=== PATIENT | female | born 1960 | race Caucasian/White ===

== ENCOUNTER 2020-10-29 10:07 | Emergency (ER) | payer BC ==
[~2020-10-29] VITALS: Ht 175.3 cm; Wt 59.0 kg
[2020-10-29 10:09] VITALS: BP 151/99
--- NOTE | 2020-10-29 10:09 | NUR ---
PT AMBULATED TO BED 9 WITH STEADY GAIT
--- NOTE | 2020-10-29 10:30 | NUR ---
60 YEAR OLD FEMALE COMPLAINS OF CHEST PAIN X 2 WEEKS. PT STATES THAT SHE HAD EPISODE OF SYNCOPE THIS MORNING, AND THAT SHE DID NOT FALL AND HIT HEAD. PT STATES SHE HAD EPISODES OF SYNCOPE SINCE KIDNEY BIOPSY PERFORMED LAST MONTH. PT AOX4, BREATHING EVEN AND UNLABORED, SKIN WARM AND DRY. BED IN LOWEST POSITION, LOCKED, BED RAIL UPX1. PMH - HTN, KIDNEY TRANSPLANT ALLERGIES - NKA
--- NOTE | 2020-10-29 10:53 | NUR ---
DR BRUNNER AT BEDSIDE EVALUATING PATIENT
[2020-10-29 11:26] LABS: HEMATOCRIT 28.9 % (36-48); RED BLOOD CELL COUNT(AUTO) 3.23 MIL/uL (4.20-5.40)
[2020-10-29 11:31] LABS: HEMOGLOBIN 9.9 g/dL (12.0-16.0); MEAN CORPUSCULAR HEMOGLOBIN 31 pg (27-31); MEAN CORPUSCULAR HGB CONC 34 g/dL (33-37); MEAN CORPUSCULAR VOLUME 89.6 fL (80-94); PLATELET COUNT (AUTO) 439 K/uL (140-450); RED CELL DISTRIBUTION WIDTH 14.8 % (11.6-13.7)
[2020-10-29 11:36] LABS: ALBUMIN 3.3 g/dL (3.4-5.0); ANION GAP 16.1 (8-16); CARBON DIOXIDE 30.7 mmol/L (21-32); TOTAL BILIRUBIN 0.5 mg/dL (0.0-1.0)
[2020-10-29 11:44] LABS: WHITE BLOOD COUNT (AUTO) 1.8 K/uL (4.8-10.8)
[2020-10-29 11:45] LABS: EOSINOPHILS % (MANUAL) 1 % (0-4); LYMPHOCYTES % (MANUAL) 25 % (20-46); MONOCYTES % (MANUAL) 23 % (5-12)
[2020-10-29 11:46] LABS: POTASSIUM 2.8 mmol/L (3.5-5.1)
[2020-10-29] MEDS ORDERED: NACL 0.9% 500 ML IV ONE (12:00)
[2020-10-29] MEDS ORDERED: fentaNYL citrate 0.05 MG/ML VIAL IVP ONE (12:00)
--- NOTE | 2020-10-29 12:40 | NUR ---
PT ALERT AND AWAKE, BREATHING EVEN AND UNLABORED, STATES NO PAIN AT THIS TIME
--- NOTE | 2020-10-29 13:55 | NUR ---
Patient discharged with v/s stable. Written and verbal after care instructions about nonspecific chest pain given and explained. Patient verbalized understanding. Ambulatory with steady gait. All questions addressed prior to discharge. Advised to follow up with PMD.
[2020-10-29 13:57] VITALS: BP 147/90
== END 2020-10-29 13:55 | disposition home or self-care (01) ==
LOC: MED 10:07
DX: R07.9 Chest pain, unspecified (principal); R06.02 Shortness of breath; R11.2 Nausea with vomiting, unspecified; Z98.890 Other specified postprocedural states
CPT/HCPCS: 36415; 71045; 80053; 83880; 84484; 85025; 93005; 96361; 96374; 99285; J3010; J7030

== ENCOUNTER 2022-07-11 11:05 | Inpatient (IN) | payer BC ==
[~2022-07-11] VITALS: Ht 175.3 cm; Wt 65.8 kg
[2022-07-11 11:09] VITALS: BP 122/84
--- NOTE | 2022-07-11 11:09 | NUR ---
[facility]EL[facility] TO ER BED 3
--- NOTE | 2022-07-11 11:20 | NUR ---
PT PLACED ON 15L N/C BUBBLER BY RT, SPO2 95%
--- NOTE | 2022-07-11 11:25 | NUR ---
RECEIVED CALL FROM RN AT 11:04 THAT PT COMPLAINING OF SOB WAS ARRIVING IN ER MOMENTARILTY. PT ARRIVED ON NONREBREATHER AT 15 L. SATURATION WAS 97%. O2 DECREASED TO 87% ON ROOM AIR WHILE PT AMBULATED TO HOSPITAL BED. IMMEDIATELY RETURNED TO 98% ONCE NONREBREATHER WAS REPLACED. PLACED PT ON NC BUBBLER AT 15LPM. O2 IS 96%, HR 112, AND RR 24. WILL CONTINUE TO MONITOR PATIENT.
[2022-07-11 11:52] LABS: BASOPHILS % (AUTO) 0.4 % (0.0-2.0); EOSINOPHILS % (AUTO) 0.4 % (0.0-4.0); HEMATOCRIT 42.7 % (36-48); HEMOGLOBIN 14.3 g/dL (12.0-16.0); MEAN CORPUSCULAR HEMOGLOBIN 34 pg (27-31); MEAN CORPUSCULAR HGB CONC 34 g/dL (33-37); MEAN CORPUSCULAR VOLUME 101.5 fL (80-94); MONOCYTES # (AUTO) 1.2 K/uL (0.8-1.0); MONOCYTES % (AUTO) 15.6 % (1.7-9.3); NEUTROPHILS # (AUTO) 5.6 K/uL (1.8-7.7); NEUTROPHILS % (AUTO) 70.6 % (42.2-75.2); PLATELET COUNT (AUTO) 325 K/uL (140-450); RED BLOOD CELL COUNT(AUTO) 4.21 MIL/uL (4.20-5.40); RED CELL DISTRIBUTION WIDTH 16.3 % (11.6-13.7); WHITE BLOOD COUNT (AUTO) 7.9 K/uL (4.8-10.8)
[2022-07-11 12:08] LABS: ALBUMIN 3.9 g/dL (3.4-5.0); ANION GAP 21.6 (8-16); ASPARTATE AMINOTRANSFERASE 66 U/L (15-37); CARBON DIOXIDE 24.2 mmol/L (21-32); CHLORIDE 92 mmol/L (98-107); CREATININE 1.5 mg/dL (0.6-1.3); GFR ARICAN-AMERICAN 45 mL/min (>90); GLUCOSE 152 mg/dL (74-106); SODIUM SERUM 135 mmol/L (136-145); TOTAL BILIRUBIN 2.3 mg/dL (0.0-1.0); UREA NITROGEN, BLOOD 11 mg/dL (7-18)
[2022-07-11 12:09] LABS: POTASSIUM 2.8 mmol/L (3.5-5.1)
[2022-07-11] MEDS ORDERED: POTASSIUM CHLORIDE 20% 40 MEQ/15 ML UDC PO ONE (12:10)
[2022-07-11] MEDS ORDERED: LACTATED RINGERS 1,000 ML IV ONE (12:25)
--- NOTE | 2022-07-11 12:30 | NUR ---
RESUMED CARE OF PT. AOX4. C/O SOB X1 WEEK WORSENING LAST 2 DAYS. ON 15L WITH BUBBLER. SATURATION 92-93%. SPEAKING IN FULL SENTENCES. IV NOTED TO RIGHT AC SL. SAFETY MAINTAINED.
[2022-07-11 12:37] LABS: APPEARANCE,URINE CLEAR (CLEAR); BILIRUBIN,URINE 2+ (NEGATIVE); BLOOD, URINE NEGATIVE (NEGATIVE); COLOR,URINE YELLOW (YELLOW); LEUKOCYTE ESTERASE ,URINE NEGATIVE (NEGATIVE); NITRITE, URINE POSITIVE (NEGATIVE); UGLUCOSE NEGATIVE (NEGATIVE)
[2022-07-11] MEDS ORDERED: cefTRIAXone 1,000 MG VIAL ONE (12:58)
--- NOTE | 2022-07-11 13:10 | NUR ---
PT PLACED ON BIPAP BY RT PER DR CHENEY ORDERS.
[2022-07-11 13:35] LABS: RBC,URINE 0-5 /HPF (0-5); WBC,URINE 0-5 /HPF (0-5)
[2022-07-11] MEDS ORDERED: KCL 20 MEQ/WATER INJ PREMIX 100 ML IV ONE (13:35)
[2022-07-11] MEDS ORDERED: ACETAMINOPHEN 325 MG TAB PO PRN (14:00)
[2022-07-11] MEDS ORDERED: ONDANSETRON 4 MG/2 ML VIAL IVP PRN (14:00)
[2022-07-11] MEDS ORDERED: ZOLPIDEM 10 MG TAB PO PRN (14:00)
[2022-07-11] MEDS ORDERED: MORPHINE SULFATE 2 MG/ML SYR IVP PRN (14:00)
[2022-07-11] MEDS ORDERED: MAG SULF 2000 MG/WATER PREMIX 50 ML IV PRN (14:00)
[2022-07-11] MEDS ORDERED: DOCUSATE SODIUM 100 MG GELCAP PO PRN (14:00)
[2022-07-11] MEDS ORDERED: LORazepam 2 MG/ML VIAL IVP PRN (14:00)
--- NOTE | 2022-07-11 14:49 | NUR ---
PT TOLERATING BIPAP SETTINGS WELL
[2022-07-11] MEDS: FUROSEMIDE 40 MG/4 ML VIAL IVP SCH (14:50)
[2022-07-11] MEDS ORDERED: DILT-135 PO (15:06)
[2022-07-11] MEDS ORDERED: PRED5TAB7 PO (15:06)
[2022-07-11] MEDS ORDERED: APIX5TAB PO (15:06)
[2022-07-11] MEDS ORDERED: ASPI-1822 PO (15:06)
--- NOTE | 2022-07-11 15:44 | NUR ---
REPORT GIVEN TO STRIP POLISHER FOR CONTINUATION OF CARE.
[2022-07-11 16:00] VITALS: BP 112/80
[2022-07-11 17:33] LABS: ANION GAP 15.3 (8-16); CARBON DIOXIDE 28.7 mmol/L (21-32); CREATININE 1.3 mg/dL (0.6-1.3)
[2022-07-11 18:00] VITALS: BP 143/98
--- NOTE | 2022-07-11 19:00 | NUR ---
RECEIVED REPORT FROM AM SHIFT. PATIENT WAS SEEN AND ASSESSED. PATIENT IS ON SPONTANEOUS TIME MODE ON BiPAP. PATIENT IS AWAKE AND ALERT AT THIS TIME. PATIENT IS ON BiPAP SETTINGS: IPAP 12, EPAP 6, BACK UP RR 14, FiO2 60%. SPO2 97%. NOTICED ADEQUATE BILATERAL CHEST RISE AND FALL. MACHINE PLUGGED IN RED OUTLET AND CONNECTED TO 50 PSI. BiPAP ALARMS SET APPROPRIATELY AND AUDIBLE TO ENVIRONMENT. AMBU BAG AT BEDSIDE. PATIENT IS IN NO RESPIRATORY DISTRESS AT THIS TIME. BILATERAL BREATH SOUNDS ON AUSCULTATION; UPPER LOBES: COARSE AND LOWER LOBES: COARSE. WILL CONTINUE TO MONITOR PATIENT.
--- NOTE | 2022-07-11 19:08 | NUR ---
PLACED PT ON BUBBLE HIGH FLOW NASAL CANNULAR 9L FOR PT TO EAT. PT TOLERATING WELL AT THIS TIME. SPO2 94%. RN AT BEDSIDE. WILL CONTINUE TO MONITOR PT.
--- NOTE | 2022-07-11 19:45 | NUR ---
CALLED TO BEDSIDE DUE TO PT DESATURATING AND MINIMAL INCREASE WOB. PLACED PT BACK ON BiPAP. PROTECTIVE GEL APPLIED. PT TOLERATING WELL AT THIS TIME. WILL CONTINUE TO MONITOR PT.
[2022-07-11 20:00] VITALS: BP 131/92
--- NOTE | 2022-07-11 20:00 | NUR ---
RECEIVED PATIENT AWAKE,ALERT AND ORIENTED.AFEBRILE.DENIES ANY PAIN AND DISCOMFORT.ON BIPAP SUPPORT WITH SETTINGS 12/6 RATE 16 FIO2 60%. O2 SAT AT92%.AFIB WITH RVR ON MONITOR HR 110.BP 106/76. SKIN INTACT .PULSES PRESENT AND PALPABLE WITH EDEMA ON BOTH LOWER EEXTREMITIES.PATIENT PATIENT VOIDS FREELY WITH ADEQUATE AMOUUNT OF URINE.WILL CONTINUE TO PROCEED WITH CARE PLAN.
[2022-07-11] MEDS ORDERED: PIPERACILLIN/TAZOBACTAM 3.375 GM VIAL IV ONE ×2 (20:51→23:26)
[2022-07-11] MEDS: PIPERACILLIN/TAZOBACTAM 3.375 GM in DEXTROSE 5% 50 ML IV SCH (21:15)
[2022-07-11] MEDS: APIXABAN 2.5 MG TAB PO SCH (21:17)
[2022-07-11 22:00] VITALS: BP 115/87
[2022-07-11 22:39] LABS: URINE TOTAL PROTEIN 65.1 mg/dL (0-12)
[2022-07-11 23:08] VITALS: BP 117/83
--- NOTE | 2022-07-11 23:14 | NUR ---
AT BEDSIDE, SPO2 100%. TITRATED FiO2 FROM 60% TO 45%. SPO2 100%. PT IS AWAKE AND ALERT. PT TOLERATING WELL AT THIS TIME. RN NOTIFIED. WILL CONTINUE TO MONITOR PT.
[2022-07-12] VITALS (15 sets, daily range): BP systolic 91–115; BP diastolic 60–78
[2022-07-12] MEDS: PIPERACILLIN/TAZOBACTAM 3.375 GM in DEXTROSE 5% 50 ML IV SCH ×5 (00:19→23:11)
--- NOTE | 2022-07-12 04:20 | NUR ---
AT BEDSIDE, SPO2 100%. TITRATED FiO2 FROM 45% TO 30%. SPO2 99%. PT TOLERATING WELL AT THIS TIME. RN NOTIFIED. WILL CONTINUE TO MONITOR PT.
[2022-07-12] MEDS ORDERED: PIPERACILLIN/TAZOBACTAM 3.375 GM VIAL IV ONE (05:24)
[2022-07-12 05:30] LABS: BASOPHILS % (AUTO) 0.7 % (0.0-2.0); EOSINOPHILS # (AUTO) 0.1 K/uL (0-0.4); EOSINOPHILS % (AUTO) 1.3 % (0.0-4.0); HEMATOCRIT 34.9 % (36-48); HEMOGLOBIN 11.5 g/dL (12.0-16.0); LYMPHOCYTES # (AUTO) 0.8 K/uL (2.5-16.5); LYMPHOCYTES % (AUTO) 15.6 % (20.5-51.1); MEAN CORPUSCULAR HEMOGLOBIN 34 pg (27-31); MEAN CORPUSCULAR HGB CONC 33 g/dL (33-37); MEAN CORPUSCULAR VOLUME 101.6 fL (80-94); MONOCYTES # (AUTO) 0.8 K/uL (0.8-1.0); MONOCYTES % (AUTO) 14.3 % (1.7-9.3); NEUTROPHILS # (AUTO) 3.6 K/uL (1.8-7.7); NEUTROPHILS % (AUTO) 68.1 % (42.2-75.2); PLATELET COUNT (AUTO) 204 K/uL (140-450); RED BLOOD CELL COUNT(AUTO) 3.44 MIL/uL (4.20-5.40); WHITE BLOOD COUNT (AUTO) 5.3 K/uL (4.8-10.8)
[2022-07-12 06:36] LABS: ALBUMIN 2.9 g/dL (3.4-5.0); ANION GAP 12.8 (8-16); CARBON DIOXIDE 28.8 mmol/L (21-32); CREATININE 1.2 mg/dL (0.6-1.3); POTASSIUM 3.6 mmol/L (3.5-5.1); TOTAL BILIRUBIN 1.4 mg/dL (0.0-1.0)
--- NOTE | 2022-07-12 07:00 | NUR ---
ENDORSED TO TOMI DAY SHIFT RN TO CONTINUE CARE.
--- NOTE | 2022-07-12 07:30 | NUR ---
REMOVED BIPAP SO PT COULD EAT. PT ON 15L NASAL CANNULA. SATURATION 100%. NO DISTRESS NOTED. WILL CONTINUE TO MONITOR.
--- NOTE | 2022-07-12 08:13 | NUR ---
BREAKFAST TOOK ABOUT 30% .
--- NOTE | 2022-07-12 08:45 | NUR ---
SEEN BY DR. SANTIZO NO NEW ORDER RECEIVED.
--- NOTE | 2022-07-12 09:05 | NUR ---
PATIENT HAS BEEN SCREENED AND CATEGORIZED MODERATE NUTRITION RISK. PATIENT WILL BE SEEN WITHIN 3-5 DAYS OF ADMISSION. FNS REFERRAL RECEIVED ON 07/12/22. REFERRAL DOES NOT MEET HIGH RISK CRITERIA PER HOSPITAL POLICY. PT WILL BE SEEN AND ASSESSED ACCORDING TO THE NUTRITION CARE POLICY. REVIEWED BY SALLY OLIVAS RD Addendum: 07/12/22 at [address] PATIENT HAS BEEN RE-SCREENED AND CATEGORIZED HIGH NUTRITION RISK. PATIENT WILL BE SEEN WITHIN 1-2 DAYS OF ADMISSION. REVIEWED BY SALLY OLIVAS RD
[2022-07-12] MEDS: FUROSEMIDE 40 MG/4 ML VIAL IVP SCH (09:54)
[2022-07-12] MEDS: ASPIRIN 81 MG TAB.CHEW PO SCH (09:55)
[2022-07-12] MEDS: predniSONE 5 MG TAB PO SCH (09:55)
[2022-07-12] MEDS: DILTIAZEM 120 MG CAPER PO SCH (09:55)
[2022-07-12] MEDS: APIXABAN 2.5 MG TAB PO SCH ×2 (09:55→20:43)
[2022-07-12] MEDS: METOPROLOL SUCCINATE 50 MG TABER PO SCH (09:56)
--- NOTE | 2022-07-12 10:30 | NUR ---
SEEN BY DR. BABCOCK AT BED SIDE , NO NEW ORDER RECEIVED.
[2022-07-12] MEDS ORDERED: ZOLPIDEM 5 MG TAB PO PRN (11:05)
--- NOTE | 2022-07-12 14:30 | NUR ---
TEXT TO DR BABCOCK HE SAID SHE CAN BE DOWN GRADE TO TELE IF OK WITH DR. CHAN.
--- NOTE | 2022-07-12 14:54 | NUR ---
TEXT DR. Dago CHAN SAID IT OK FOR HER TO BE DOWN GRADE TO TELE.
--- NOTE | 2022-07-12 14:56 | NUR ---
07/12/22 RD INITIAL ASSESSMENT COMPLETED PLEASE REFER TO NUTRITION ASSESSMENT UNDER CARE ACTIVITY FOR ESTIMATED NUTRITIONAL NEEDS. 1. CONTINUE CARDIAC DIET TOLERATED 2. MONITOR GI SYMPTOMS, PO INTAKE, AND NUTRITION RELATED LAB VALUES 3. RD TO FOLLOW-UP 3-5 DAYS, MODERATE RISK REVIEWED BY SALLY OLIVAS RD
--- NOTE | 2022-07-12 15:20 | NUR ---
PT TRANSFERRED TO ROOM 125B ON 15L NC WITH BUBBLER. A/OX4, ABLE TO MAKE NEEDS KNOWN. AMBULATORY TO RESTROOM. NO COMPLAINTS OF PAIN. 20G IV TO RAC SALINE LOCK. AFIB ON MONITOR. CALL LIGHT WITHIN REACH. BED LOCKED AND IN LOWEST POSITION. STANDARD PRECAUTION.
--- NOTE | 2022-07-12 15:20 | NUR ---
TRANSFER TO [facility] IN WHEELCHAIR BY ANN MARIE HODGES GENEVA SUPP. CONDITION STABLE AT THE TIMEM
--- NOTE | 2022-07-12 15:20 | NUR ---
TRANSFER OF PT TO ROOM 125B. BIPAP ON STAND BY. SETTING 12/,1.0. 30%. PT CURRENTLY ON 10L BUBBLE AND NO DISTRESS NOTED. SATURATION WAS 100%. WILL CONTINUE TO MONITOR.
--- NOTE | 2022-07-12 16:35 | NUR ---
DC PLANNING ASSESSMENT COMPLETE PLEASE REFER TO ASSESSMENT FOR DETAILS PT CURRENTLY HAS HLOC ORDER PENDING TO FOR LIVER BIOPSY, CM CURRENTLY WORKING ON. Addendum: 07/12/22 at 1729 by Sage JACSKON Amended: Links added.
--- NOTE | 2022-07-12 18:05 | NUR ---
FAMILY AT BEDSIDE
--- NOTE | 2022-07-12 19:12 | NUR ---
ENDORSED BEDSIDE REPORT TO ABELINO, INSURANCE VERIFICATION REP STEEL POST INSTALLER SUPERVISOR, FOR CONTINUITY OF CARE
[2022-07-12 22:13] LABS: CHLORIDE,URINE RANDOM 121 mmol/L (110-250); URINE SODIUM, RANDOM 115 mmol/l (40-220)
[2022-07-13 04:32] VITALS: BP 112/84
[2022-07-13] MEDS: PIPERACILLIN/TAZOBACTAM 3.375 GM in DEXTROSE 5% 50 ML IV SCH ×4 (05:09→23:41)
--- NOTE | 2022-07-13 05:14 | NUR ---
rn notes patient remains on 6L nasal cannula with humidifier at this time. no sob noted, VSS. received all medications with no side effects. Can safely go to the restroom independently.
[2022-07-13 06:09] LABS: BASOPHILS % (AUTO) 0.5 % (0.0-2.0); EOSINOPHILS # (AUTO) 0.1 K/uL (0-0.4); EOSINOPHILS % (AUTO) 2.1 % (0.0-4.0); HEMATOCRIT 37.8 % (36-48); HEMOGLOBIN 12.4 g/dL (12.0-16.0); LYMPHOCYTES # (AUTO) 0.9 K/uL (2.5-16.5); LYMPHOCYTES % (AUTO) 15.2 % (20.5-51.1); MEAN CORPUSCULAR HEMOGLOBIN 34 pg (27-31); MEAN CORPUSCULAR HGB CONC 33 g/dL (33-37); MEAN CORPUSCULAR VOLUME 102.5 fL (80-94); MONOCYTES # (AUTO) 0.7 K/uL (0.8-1.0); MONOCYTES % (AUTO) 11.7 % (1.7-9.3); NEUTROPHILS # (AUTO) 4.4 K/uL (1.8-7.7); NEUTROPHILS % (AUTO) 70.5 % (42.2-75.2); PLATELET COUNT (AUTO) 228 K/uL (140-450); RED BLOOD CELL COUNT(AUTO) 3.68 MIL/uL (4.20-5.40); RED CELL DISTRIBUTION WIDTH 16.2 % (11.6-13.7); WHITE BLOOD COUNT (AUTO) 6.2 K/uL (4.8-10.8)
[2022-07-13 06:19] LABS: ANION GAP 15.1 (8-16); CARBON DIOXIDE 28.9 mmol/L (21-32); CREATININE 1.1 mg/dL (0.6-1.3)
--- NOTE | 2022-07-13 07:16 | NUR ---
ASSUMED CONTINUITY OF CARE. INITIAL ASSESSMENT DONE. INITIAL ASSESSMENT DONE. SKIN BRUISE ON BUE, NOTED. IV ACCESS ON RIGHT AC GAUGE #20 LEAKING, D/C AND REMOVED. KEEP COMFORTABLE ON BED. CALL LIGHT WITHIN REACH.
[2022-07-13 08:00] VITALS: BP 107/73
--- NOTE | 2022-07-13 08:45 | NUR ---
IV INSERTED BY LYNN ABDULLAHI ON LEFT FOREARM GAUGE #22.TOLERATED WELL.
[2022-07-13] MEDS: METOPROLOL SUCCINATE 50 MG TABER PO SCH (08:53)
[2022-07-13] MEDS: DILTIAZEM 120 MG CAPER PO SCH (08:53)
[2022-07-13] MEDS: ASPIRIN 81 MG TAB.CHEW PO SCH (08:53)
[2022-07-13] MEDS: APIXABAN 2.5 MG TAB PO SCH ×2 (08:55→21:08)
[2022-07-13] MEDS: predniSONE 5 MG TAB PO SCH (08:59)
[2022-07-13] MEDS: FUROSEMIDE 40 MG/4 ML VIAL IVP SCH (09:26)
[2022-07-13] MEDS: POTASSIUM CHLORIDE 10 MEQ TABER PO PRN (10:53)
[2022-07-13 12:00] VITALS: BP 106/76
--- NOTE | 2022-07-13 13:10 | NUR ---
DR. MALIN CAME AND SPOKE TO PT. AT BEDSIDE.
[2022-07-13 16:00] VITALS: BP 102/70
--- NOTE | 2022-07-13 18:07 | NUR ---
PAGED JASON ANDERSON PER DR. ZHOU REQUEST REGARDING PT. D/C.
--- NOTE | 2022-07-13 18:08 | NUR ---
DR. CHAN PAGED BACK AND SAID THAT PT. CAN BE D/C AND FOLLOW UP PT. TRANSPLANT MD. DR. CHAN MESSAGE WAS FORWARDED TO DR. ZHOU. INFORMED CHARGE NURSE -OLIVIA -ELSI
--- NOTE | 2022-07-13 18:18 | NUR ---
PT. C/O CHEST PAIN. NO ACUTE DISTRESS NOTED. KEEP COMFORTABLE ON BED. WILL MEDICATE PER MD ORDER. INFORMED CHARGE NURSE OLIVIA ABDULLAHI.
--- NOTE | 2022-07-13 18:20 | NUR ---
PAGED DR. ZHOU AND INFORMED THAT PT. C/O CHEST PAIN AND WILL MEDICATE WITH MORPHINE ORDERED. DR. ZHOU HOLD D/C ORDER AND ORDERED STAT EKG. INFORMED CHARGE NURSE OLIVIA ABDULLAHI.
--- NOTE | 2022-07-13 18:46 | NUR ---
EKG PERFORMED AND ABNORM RESULTS WERE REPORTED TO RN RN WAS HANDED A COPY AND A COPY WAS PLACED IN PT CHART
--- NOTE | 2022-07-13 19:23 | NUR ---
REPORT GIVEN TO ZOË ABDULLAHI. IN STABLE CONDITION. ALSO ENDORSED ABOUT PT. HOLDING OF D/C DUE TO C/O CHEST PAIN.
--- NOTE | 2022-07-13 19:25 | NUR ---
RECEIVED PT FROM AM NURSE FOR CONTINUITY OF CARE. PT IS STABLE
[2022-07-13 20:00] VITALS: BP 100/64
--- NOTE | 2022-07-13 20:57 | NUR ---
REPORTED TO DR ZHOU PATIENT'S BP 77/47. MD BLAKE TO REPEAT BP
--- NOTE | 2022-07-13 21:30 | NUR ---
RECHECK BP 65/45. REPORTED TO MD. MD ORDERED 1 MG MORPHINE AND NS BOLUS OF 500 CC
[2022-07-13] MEDS ORDERED: MORPHINE SULFATE 2 MG/ML SYR IVP SCH (21:45)
[2022-07-13] MEDS ORDERED: NACL 0.9% 500 ML IV SCH (22:00)
--- NOTE | 2022-07-13 23:15 | NUR ---
BP IS NOW 100/64. NOTIFIED MD LINDA SAID ITS FINE AND NO NEED FOR MIDODRINE
--- NOTE | 2022-07-14 02:00 | NUR ---
MAGNESIUM SULFATE INFUSING FOR MAG 1.2
[2022-07-14 04:00] VITALS: BP 115/68
[2022-07-14] MEDS: PIPERACILLIN/TAZOBACTAM 3.375 GM in DEXTROSE 5% 50 ML IV SCH ×4 (05:46→23:47)
[2022-07-14 06:14] LABS: BASOPHILS % (AUTO) 0.5 % (0.0-2.0); EOSINOPHILS # (AUTO) 0.2 K/uL (0-0.4); EOSINOPHILS % (AUTO) 1.6 % (0.0-4.0); HEMATOCRIT 35.3 % (36-48); HEMOGLOBIN 11.7 g/dL (12.0-16.0); LYMPHOCYTES % (AUTO) 18.2 % (20.5-51.1); MEAN CORPUSCULAR HEMOGLOBIN 34 pg (27-31); MEAN CORPUSCULAR HGB CONC 33 g/dL (33-37); MEAN CORPUSCULAR VOLUME 103.3 fL (80-94); MONOCYTES # (AUTO) 1.4 K/uL (0.8-1.0); MONOCYTES % (AUTO) 13.3 % (1.7-9.3); NEUTROPHILS # (AUTO) 7.1 K/uL (1.8-7.7); NEUTROPHILS % (AUTO) 66.4 % (42.2-75.2); PLATELET COUNT (AUTO) 240 K/uL (140-450); RED BLOOD CELL COUNT(AUTO) 3.42 MIL/uL (4.20-5.40); WHITE BLOOD COUNT (AUTO) 10.7 K/uL (4.8-10.8)
[2022-07-14 06:36] LABS: ANION GAP 15.2 (8-16); CARBON DIOXIDE 25.3 mmol/L (21-32); CREATININE 1.5 mg/dL (0.6-1.3); POTASSIUM 3.5 mmol/L (3.5-5.1)
[2022-07-14 08:00] VITALS: BP 94/67
[2022-07-14] MEDS: DILTIAZEM 120 MG CAPER PO SCH (09:00)
[2022-07-14] MEDS: FUROSEMIDE 40 MG/4 ML VIAL IVP SCH (09:00)
--- NOTE | 2022-07-14 09:05 | NUR ---
RECEIVED ON A VAPOTHERM HIGH FLOW NASAL CANNULA WITH COMPRESSOR ON PLUGGED INTO RED OUTLET C/O "EXCESSIVE FLOW AND IT'S DRYING ME OUT" PATIENT WITH NO C/O SOB AT THIS TIME GOOD CHEST RISE BREATH SOUNDS DECREASED BILATERAL GOOD CHEST RISE DECREASED FLOW TO 30 LPM TITRATED FIO2 TO 80% MECHANICAL ADJUSTER TO MONITOR AND TITRATED FIO2 TOLERATED
--- NOTE | 2022-07-14 09:20 | NUR ---
SATURATION 100% ON FIO2 OF 80% VIA VAPOTHERM HIGH FLOW NASAL CANNULA TITRATED FIO2 TO 60% PENSIONHOLDER INFORMATION CLERK TO MONITOR AND TITRATE FIO2 TOLERATED
--- NOTE | 2022-07-14 09:43 | NUR ---
TOLERATING VAPOTHERM HIGH FLOW NASAL CANNULA SATURATION 97% ON FIO2 OF 60% TITRATED FIO2 TO 40% C/O OF SOB AT THIS TIME
[2022-07-14] MEDS: ALBUTEROL 0.083% 2.5 MG/3 ML NEBU INH PRN ×2 (09:52→19:50)
--- NOTE | 2022-07-14 09:52 | NUR ---
SATURATION 96% ON FIO2 OF 40% VIA VAPOTHERM HIGH FLOW NASAL CANNULA POST HHN THERAPY REMOVED FROM VAPOTHERM PLACED ON HUMIDIFIED SUPPLEMENTAL OXYGEN AT 5 LPM VIA NC
--- NOTE | 2022-07-14 10:08 | NUR ---
SATURATION 94% ON 5 LPM VIA NC NO DISTRESS NOTED PA NOTIFIED Addendum: 07/14/22 at 1714 [address] RT PA=SHANNON
[2022-07-14] MEDS: APIXABAN 2.5 MG TAB PO SCH ×2 (10:40→20:41)
[2022-07-14] MEDS: ASPIRIN 81 MG TAB.CHEW PO SCH (10:40)
[2022-07-14] MEDS: predniSONE 5 MG TAB PO SCH (10:46)
[2022-07-14] MEDS: METOPROLOL SUCCINATE 50 MG TABER PO SCH (10:49)
[2022-07-14 12:00] VITALS: BP 122/90
--- NOTE | 2022-07-14 15:09 | NUR ---
LOC AWAKE AND ALERT VERBALLY RESPONSIVE; SPOUSE AT BEDSIDE; NO DISTRESS NOTED GOOD CHEST RISE; RALES BILATERAL; GOOD CHEST RISE; SATURATION 97% ON SUPPLEMENTAL OXYGEN AT 5 LPM VIA NC; TITRATED FIO2 TO 4 LPM; NAS/RN NOTIFIED
[2022-07-14 16:00] VITALS: BP 96/77
--- NOTE | 2022-07-14 19:16 | NUR ---
ENDORSE PATIENT IN STABLE CONDITION TO PM SHIFT NURSE WHILE PIV L. FOREARM 22G SALINE LOCK. PATIENT CURRENT ON 4 LITER VIA NC. MIGHT DISCHARGE HOME TOMORROW.
--- NOTE | 2022-07-14 19:25 | NUR ---
RECEIVED PT FROM AM NURSE FOR CONTINUITY OF CARE. PT IS STABLE
[2022-07-14 20:00] VITALS: BP 101/62
--- NOTE | 2022-07-14 20:39 | NUR ---
1950 patient given hhntx. patient wants to try taking o2 off. sats on room air 98%. left o2 on standby for pt. took hiflow machine and bipap machine out of pt room. pt will call if she feels sob
[2022-07-15] VITALS: BP 104/59
--- NOTE | 2022-07-15 01:00 | NUR ---
PATIENT ASLEEP, NO SOB NOTED
[2022-07-15 04:00] VITALS: BP 99/60
[2022-07-15] MEDS: PIPERACILLIN/TAZOBACTAM 3.375 GM in DEXTROSE 5% 50 ML IV SCH ×3 (05:54→18:05)
[2022-07-15 06:04] LABS: BASOPHILS % (AUTO) 0.6 % (0.0-2.0); EOSINOPHILS # (AUTO) 0.1 K/uL (0-0.4); EOSINOPHILS % (AUTO) 1.1 % (0.0-4.0); HEMATOCRIT 34.7 % (36-48); HEMOGLOBIN 11.5 g/dL (12.0-16.0); LYMPHOCYTES # (AUTO) 1.5 K/uL (2.5-16.5); LYMPHOCYTES % (AUTO) 22.7 % (20.5-51.1); MEAN CORPUSCULAR HEMOGLOBIN 34 pg (27-31); MEAN CORPUSCULAR HGB CONC 33 g/dL (33-37); MEAN CORPUSCULAR VOLUME 102.3 fL (80-94); MONOCYTES # (AUTO) 0.9 K/uL (0.8-1.0); MONOCYTES % (AUTO) 13.4 % (1.7-9.3); NEUTROPHILS # (AUTO) 4.2 K/uL (1.8-7.7); NEUTROPHILS % (AUTO) 62.2 % (42.2-75.2); PLATELET COUNT (AUTO) 218 K/uL (140-450); RED BLOOD CELL COUNT(AUTO) 3.39 MIL/uL (4.20-5.40); WHITE BLOOD COUNT (AUTO) 6.8 K/uL (4.8-10.8)
[2022-07-15 06:32] LABS: ANION GAP 13.7 (8-16); CARBON DIOXIDE 27.4 mmol/L (21-32); CREATININE 1.4 mg/dL (0.6-1.3); POTASSIUM 3.1 mmol/L (3.5-5.1)
--- NOTE | 2022-07-15 07:15 | NUR ---
ENDORSED PATIENT TO AM NURSE. PT IS STABLE
--- NOTE | 2022-07-15 07:20 | NUR ---
RECEIVED REPORT FROM NIGHT NURSE ZOË FOR CONTINUITY OF CARE. IV SITE INTACT. ON CONT. o2 THERAPY @ 2lMIN VIA N/C. NOT IN ANY DISTRESS NOTED. CALL LIGHT KEPT WITHIN REACH. WILL CONTINUE TO MONITOR.
[2022-07-15 08:00] VITALS: BP 126/87
[2022-07-15] MEDS: FUROSEMIDE 40 MG/4 ML VIAL IVP SCH (09:00)
[2022-07-15] MEDS: DILTIAZEM 120 MG CAPER PO SCH (09:00)
--- NOTE | 2022-07-15 09:33 | NUR ---
RECEIVED CALLED FROM [facility] SPOKE TO ILAN. REQUESTING FOR RECENT LABS AND TO BE FAX TO [phone].
--- NOTE | 2022-07-15 10:00 | NUR ---
STABLE NO DISTRESS NOTED GOOD CHEST RISE BREATH SOUNDS DIFFUSED RALES BILATERAL SUPPLEMENTAL OXYGEN AT 3 LPM VIA NC SATURATION 100% TITRATED FIO2 TO 2 LPM GREEN PRIZE PACKER TO NOTIFY RN
[2022-07-15] MEDS: POTASSIUM CHLORIDE 10 MEQ TABER PO PRN (10:14)
--- NOTE | 2022-07-15 10:14 | NUR ---
K DUR GIVEN FOR POTASSIUM 3.1. TOLERATING WELL.
[2022-07-15] MEDS: APIXABAN 2.5 MG TAB PO SCH ×2 (10:18→20:32)
--- NOTE | 2022-07-15 10:18 | NUR ---
SCHEDULED MEDICATIONS GIVEN. TOLERATING WELL. DILTIAZEM HOLD PER PARAMETER.
[2022-07-15] MEDS: ASPIRIN 81 MG TAB.CHEW PO SCH (10:19)
[2022-07-15] MEDS: METOPROLOL SUCCINATE 50 MG TABER PO SCH (10:29)
[2022-07-15] MEDS: predniSONE 5 MG TAB PO SCH (10:29)
[2022-07-15 12:00] VITALS: BP 119/84
--- NOTE | 2022-07-15 12:28 | NUR ---
HOME OXYGEN EVALUATION; PLACED ON ROOM AIR AT THIS TIME
--- NOTE | 2022-07-15 12:55 | NUR ---
MADE CLARIFICATION TO EVENT SALES REPRESENTATIVE JEREMY. PT WILL BE DISCHARGE TO HOME.
--- NOTE | 2022-07-15 13:38 | NUR ---
LOC AWAKE AND ALERT SITTING ON SIDE OF BED SATURATION 87%-88% ON ROOM AIR PLACED PATIENT BACK ON SUPPLEMENTAL OXYGEN AT 2 LPM VIA NC PATIENT CANDIDATE FOR HOME OXYGEN
--- NOTE | 2022-07-15 14:29 | NUR ---
PT REQUESTING TO BE DISCHARGE. NO C/O SOB OR ANY DISCOMFORT. V/S FOLLOWS: T- 96.9 P - 136 R - 18 BP 118/93 P 0/10 O2 SAT 98% RA. DR. SANTIZO NOTIFIED AGREED, AND GIVE DISCHARGE ORDER.
--- NOTE | 2022-07-15 14:48 | NUR ---
SEEN BY DR. MALIN.
[2022-07-15] MEDS ORDERED: POTASSIUM CHLORIDE 10 MEQ TABER PO SCH (14:52)
[2022-07-15] MEDS ORDERED: DIGOXIN 0.25 MG/ML AMP IV SCH (14:53)
--- NOTE | 2022-07-15 15:12 | NUR ---
AWAKE AND ALERT VERBALLY RESPONSIVE PATIENT OFF SUPPLEMENTAL OXYGEN SATURATION 86%-88% PLACED ON 2 LPM
--- NOTE | 2022-07-15 15:35 | NUR ---
INFORMED BY RT PT DE SATTING 86-88% RA. PLACED BACK ON O2 THERAPY. RECHECKED O2 SAT 90% ON 2L/NC. NO RESPIRATORY DISTRESS NOTED.
[2022-07-15 16:00] VITALS: BP 118/93
--- NOTE | 2022-07-15 16:03 | NUR ---
DC PLANNING: FAXED THE HOMEO2 ORDER TO [facility] CM TO FOLLOW Addendum: 07/15/22 at 1749 by Jessy Escoto RN DC PLANNING: RECEIVED A CALL FROM [facility] STATED WILL DELIVERY THE OXYGEN BETWEEN 6-10PM NOTIFIED KODY ZIMMERMAN CM TO FOLLOW
--- NOTE | 2022-07-15 16:22 | NUR ---
N/O LANOXIN IV GIVEN BY NAS CALZADA. TOLERATING WELL.
--- NOTE | 2022-07-15 17:01 | NUR ---
MADE CLARIFICATION TO DR. MALIN ANOTHER DOSE POTASSIUM 40 MEQ PO. ADMINISTERED MEDICATION. TOLERATING WELL.
--- NOTE | 2022-07-15 17:55 | NUR ---
NOTIFIED PT, HOME OXYGEN WILL BE DELIVERED BETWEEN [phone]. AT BEDSIDE.
--- NOTE | 2022-07-15 19:11 | NUR ---
REPORT GIVEN TO NIGHT NURSE DONA FOR CONTINUITY OF CARE. ENDORSED TO DONA PT FOR DISCHARGE TO HOME, WAITING FOR HOME OXYGEN, TO BE DELIVERED BY [facility] BETWEEN [phone]. DISCHARGED PAPERWORK DISCUSS AND SIGNED BY PATIENT. REMAINS STABLE.
--- NOTE | 2022-07-15 19:15 | NUR ---
RECEIVED PT IN BED AWAKE,ALERT AND ORIENTED X 4. DENIES PAIN. DENIES SHORTNESS OF BREATH. SKIN WARM AND DRY TO TOUCUCH. SAFETY PRECAUTION IN PLACE, CALL LIGHT IN REACH.
[2022-07-15 20:00] VITALS: BP 98/70
--- NOTE | 2022-07-15 20:50 | NUR ---
O2 TANK NOT YET DELIVERED, PER PT SHE CAN WAIT UNTIL 11 BUT AFTER THAT NO ONE WILL PICK HER UP AND SHE IS TIRED AND WANTS TO SLEEP. DR. SANTIZO MADE AWARE, PER MD OK TO STAY ONE MORE NIGHT IF NOT DELIVERED BY 11 TONIGHT. CHARGE MD MADE AWARE.
[2022-07-15] MEDS ORDERED: DIGOXIN 0.25 MG TAB PO SCH (21:00)
--- NOTE | 2022-07-15 21:50 | NUR ---
DISCHARGED INSTRUCTION GIVEN AND EXPLAINED TO PT BY AM RN. DISCHARGED HOME WITH O2. BRAIDER OPERATOR REMOVED IV WITH INTACT CANNULA. ASSISTED TO THE CAR.
[2022-07-16] MEDS ORDERED: DIGOXIN 0.25 MG TAB PO SCH (09:00)
== END 2022-07-15 21:50 | disposition home or self-care (01) | DRG 291 ==
LOC: MED 11:05 → MTU 13:58 → MED 13:58 → MIC 15:13 → MMU 07-12 15:28
PROVIDERS: ADMIT Family Medicine; ATTEND Family Medicine
PROC: 5A09457 Assistance with Respiratory Ventilation, 24-96 Consecutive Hours, Continuous Positive Airway Pressure (ICD-10-PCS; principal; 2022-07-11)
DX: I13.2 Hypertensive heart and chronic kidney disease with heart failure and with stage 5 chronic kidney disease, or end stage renal disease (principal); I50.43 Acute on chronic combined systolic (congestive) and diastolic (congestive) heart failure; J96.01 Acute respiratory failure with hypoxia; N17.0 Acute kidney failure with tubular necrosis; Z94.0 Kidney transplant status; E87.1 Hypo-osmolality and hyponatremia; N13.6 Pyonephrosis; N18.5 Chronic kidney disease, stage 5; I48.91 Unspecified atrial fibrillation; E87.6 Hypokalemia; Z20.822 Contact with and (suspected) exposure to COVID-19; R74.01 Elevation of levels of liver transaminase levels; R73.9 Hyperglycemia, unspecified; I34.0 Nonrheumatic mitral (valve) insufficiency; R33.9 Retention of urine, unspecified; Z79.01 Long term (current) use of anticoagulants; Z79.899 Other long term (current) drug therapy; Z79.82 Long term (current) use of aspirin
CPT/HCPCS: 36415; 71045; 76770; 80048; 80053; 81001; 82436; 82550; 82570; 83605; 83735; 83880; 84300; 84484; 85025; 85379; 87040; 87081; 87086; 87205; 93005; 94640; 94660; 96365; 96375; 99291; J0696; J1160; J1940; J2270; J2543; J3475; J3480; J7060; J7512; J7613; Q0092

== ENCOUNTER 2023-12-17 21:23 | Emergency (ER) | payer BC ==
[~2023-12-17] VITALS: Ht 175.3 cm; Wt 70.8 kg
[~2023-12-17 21:23] MED LIST: APIX5TAB PO; ASPI-1822 PO; DILT-135 PO; PRED5TAB7 PO
[2023-12-17 21:32] VITALS: BP 91/60; PULSE 105; RESP 16; TEMP 97.9; O2SAT 100
[2023-12-17 22:00] LABS: BASOPHILS # (AUTO) 0.1 K/uL (0.00-0.22); BASOPHILS % (AUTO) 0.5 % (0.0-2.0); EOSINOPHILS # (AUTO) 0.1 K/uL (0-0.4); EOSINOPHILS % (AUTO) 0.4 % (0.0-4.0); HEMATOCRIT 43.7 % (36-48); LYMPHOCYTES # (AUTO) 1.4 K/uL (2.5-16.5); LYMPHOCYTES % (AUTO) 10.4 % (20.5-51.1); MEAN CORPUSCULAR HEMOGLOBIN 33 pg (27-31); MEAN CORPUSCULAR HGB CONC 34 g/dL (33-37); MEAN CORPUSCULAR VOLUME 95.6 fL (80-94); MONOCYTES # (AUTO) 1.5 K/uL (0.8-1.0); MONOCYTES % (AUTO) 11.3 % (1.7-9.3); NEUTROPHILS # (AUTO) 10.4 K/uL (1.8-7.7); NEUTROPHILS % (AUTO) 77.4 % (42.2-75.2); PLATELET COUNT (AUTO) 237 K/uL (140-450); RED BLOOD CELL COUNT(AUTO) 4.57 MIL/uL (4.20-5.40); RED CELL DISTRIBUTION WIDTH 13.9 % (11.6-13.7); WHITE BLOOD COUNT (AUTO) 13.5 K/uL (4.8-10.8)
[2023-12-17] MEDS: NACL 0.9% 1,000 ML IV ONE (22:01)
[2023-12-17 22:12] LABS: ANION GAP 18.5 (8-16); CALCIUM 9.9 mg/dL (8.5-10.1); CARBON DIOXIDE 26.5 mmol/L (21-32); CREATININE 1.8 mg/dL (0.6-1.3)
[2023-12-17 22:23] LABS: ALANINE AMINOTRANSFERASE 124 U/L (12-78); ALBUMIN 3.7 g/dL (3.4-5.0); ALKALINE PHOSPHATASE 260 U/L (50-136); ASPARTATE AMINOTRANSFERASE 113 U/L (15-37); BILIRUBIN,DIRECT 0.5 mg/dL (0.0-0.3); THYROID STIMULATING HORMONE 3.16 uIU/mL (0.34-3.74); TOTAL BILIRUBIN 1.4 mg/dL (0.0-1.0); TOTAL PROTEIN, SERUM 8.4 g/dL (6.4-8.2)
[2023-12-17 22:30] LABS: APPEARANCE,URINE CLEAR (CLEAR); BILIRUBIN,URINE 1+ (NEGATIVE); BLOOD, URINE NEGATIVE (NEGATIVE); COLOR,URINE YELLOW (YELLOW); LEUKOCYTE ESTERASE ,URINE 1+ (NEGATIVE); NITRITE, URINE NEGATIVE (NEGATIVE); PH,URINE 5.5 (5.0-9.0); PROTEIN,URINE 2+ (NEGATIVE); UGLUCOSE NEGATIVE (NEGATIVE)
[2023-12-17 22:36] LABS: ICTOTEST POSITIVE (NEGATIVE)
[2023-12-17 22:37] LABS: BACTERIA,URINE >30 (MANY) /HPF (None Seen); MUCUS,URINE 1+ /LPF (None Seen); RBC,URINE 0-5 /HPF (0-5); SQUAMOUS EPITHELIAL CELL,UR 0-3 (FEW) /LPF (0-3 (FEW))
[2023-12-17] MEDS ORDERED: CEFEPIME 1,000 MG VIAL ONE (23:18)
[2023-12-17] MEDS: CEFEPIME 1,000 MG in DEXTROSE 5% 50 ML IV ONE (23:25)
[2023-12-17 23:42] VITALS: O2SAT 98
[2023-12-18 00:11] VITALS: BP 118/76; PULSE 90; RESP 18; O2SAT 99
[2023-12-18] MEDS ORDERED: ONDA-188 SL (00:11)
[2023-12-18] MEDS ORDERED: NITR100C7 PO (00:11)
== END 2023-12-18 00:14 | disposition home or self-care (01) ==
LOC: MED 21:23
DX: R00.2 Palpitations (principal); E86.0 Dehydration; N39.0 Urinary tract infection, site not specified; J44.9 Chronic obstructive pulmonary disease, unspecified; I10 Essential (primary) hypertension; E03.9 Hypothyroidism, unspecified; I48.91 Unspecified atrial fibrillation; Z87.448 Personal history of other diseases of urinary system; Z98.890 Other specified postprocedural states; Z79.899 Other long term (current) drug therapy; Z79.82 Long term (current) use of aspirin; Z79.01 Long term (current) use of anticoagulants
CPT/HCPCS: 36415; 71045; 74176; 80048; 80076; 81001; 83880; 84443; 84484; 85025; 85379; 87040; 87086; 93005; 96361; 96365; 99285; J0692; J7030; Q0092

== ENCOUNTER 2024-01-15 21:58 | Emergency (ER) | payer BC ==
[~2024-01-15] VITALS: Ht 175.3 cm; Wt 61.7 kg
[~2024-01-15 21:58] MED LIST changes: +NITR100C7 PO; +ONDA-188 SL
[2024-01-15 22:17] VITALS: BP 91/53; PULSE 101; RESP 16; TEMP 98.3; O2SAT 97
--- NOTE | 2024-01-15 22:27 | NUR ---
Amanda odonnell in [facility] - 01/15/24 at 2232 by WILLIE TO BED 11 FOLLOWING TRIAGE
--- NOTE | 2024-01-15 22:27 | NUR ---
TO BED 12 FOLLOWING TRIAGE
--- NOTE | 2024-01-15 22:35 | NUR ---
seen and examined by ERMS's with orders and carried out.
[2024-01-15 22:59] LABS: BASOPHILS # (AUTO) 0.1 K/uL (0.00-0.22); BASOPHILS % (AUTO) 0.8 % (0.0-2.0); EOSINOPHILS % (AUTO) 0.2 % (0.0-4.0); HEMATOCRIT 35.4 % (36-48); HEMOGLOBIN 12.1 g/dL (12.0-16.0); LYMPHOCYTES # (AUTO) 1.7 K/uL (2.5-16.5); LYMPHOCYTES % (AUTO) 21.6 % (20.5-51.1); MEAN CORPUSCULAR HEMOGLOBIN 33 pg (27-31); MEAN CORPUSCULAR HGB CONC 34 g/dL (33-37); MEAN CORPUSCULAR VOLUME 96.2 fL (80-94); MONOCYTES # (AUTO) 1.1 K/uL (0.8-1.0); MONOCYTES % (AUTO) 14.4 % (1.7-9.3); NEUTROPHILS # (AUTO) 4.9 K/uL (1.8-7.7); PLATELET COUNT (AUTO) 260 K/uL (140-450); RED BLOOD CELL COUNT(AUTO) 3.68 MIL/uL (4.20-5.40); RED CELL DISTRIBUTION WIDTH 14.3 % (11.6-13.7); WHITE BLOOD COUNT (AUTO) 7.7 K/uL (4.8-10.8)
[2024-01-15 23:11] LABS: CALCIUM 9.2 mg/dL (8.5-10.1); CARBON DIOXIDE 25.8 mmol/L (21-32); CREATININE 1.1 mg/dL (0.6-1.3)
[2024-01-15 23:14] LABS: INR 1.03 (0.8-1.2); PROTHROMBIN TIME 10.8 secs (10.8-13.4)
[2024-01-15 23:28] LABS: POTASSIUM 2.8 mmol/L (3.5-5.1)
[2024-01-15] MEDS ORDERED: OXYM15SP72 NS (23:33)
[2024-01-15] MEDS: POTASSIUM CHLORIDE 10 MEQ TABER PO ONE (23:40)
--- NOTE | 2024-01-15 23:40 | NUR ---
all results and noted by ERMD, medicated , tolerated well.
[2024-01-16 00:01] VITALS: BP 128/79; PULSE 89; RESP 17; TEMP 98.3; O2SAT 98
--- NOTE | 2024-01-16 00:01 | NUR ---
Patient discharged with v/s stable. Written and verbal after care instructions given and explained. Patient verbalized understanding. Ambulatory with steady gait. All questions addressed prior to discharge. Advised to follow up with PMD.
== END 2024-01-16 00:01 | disposition home or self-care (01) ==
LOC: MED 21:58
DX: R04.0 Epistaxis (principal); E87.6 Hypokalemia; E03.9 Hypothyroidism, unspecified; I10 Essential (primary) hypertension; I48.91 Unspecified atrial fibrillation; Z79.899 Other long term (current) drug therapy
CPT/HCPCS: 36415; 80048; 85025; 85610; 99283